=== PATIENT | female | born 1965 | race Caucasian/White ===

== ENCOUNTER 2017-07-13 11:40 | Emergency (ER) | payer BC ==
[2017-07-13 11:49] VITALS: BP 158/97
[2017-07-13] MEDS ORDERED: KETOROLAC TROMETHAMINE 60 MG/2 ML VIAL IM ONE ×2 (12:06→12:08)
[2017-07-13 12:20] LABS: Hematocrit 43.6 % (37.0-47.0); Hemoglobin 14.5 gm/dL (12.5-16.0); Mean Cell Volume 94.4 fl (78-100); Mean Corpuscular Hemoglobin 31.4 pg (27-31); Mean Corpuscular Hgb Conc 33.3 g/dl (32-36); Mean Platelet Volume 10.4 fl (6.0-9.5); Neutrophil # 5.5 K/mm3 (1.3-6.0); Neutrophil % 70.9 % (42-75.0); Platelet Count 317 K/mm3 (150-450); Red Blood Count 4.62 M/mm3 (4.2-5.4); Red Cell Distribution Width 13.1 % (11.5-14.0); White Blood Count 7.7 K/mm3 (4.0-10.5)
--- NOTE | 2017-07-13 12:21 | ERNOTE ---
Lower Extremity HPI - Narrative Date of Service: 07/13/17 - General Lower Extremities Pain: hip: left Time Seen by Provider: 07/13/17 11:51 Source: patient Exam Limitations: no limitations - Immun/Allergies/Home Medications Immunizations: IMMUNIZATION HX Immunizations Up to Date Yes History of Influenza Vaccine Yes Allergies/Adverse Reactions: Allergies Allergy/AdvReac Type Severity Reaction Status Date / Time Sulfa (Sulfonamide Allergy Verified 07/13/17 11:49 Antibiotics) prednisone AdvReac Mild "heart Verified 07/13/17 11:49 burn and makes me want to crawl out of my skin" Home Medications: HOME MEDICATIONS Fluticasone Propionate [Flonase] 1 spray NS BID 06/15/16 [Last Taken Unknown] Omeprazole [Prilosec] 20 mg PO DAILY 06/15/16 [Last Taken Unknown] Cyclobenzaprine HCl [Flexeril] 10 mg PO TID PRN #30 tab 07/13/17 [Last Taken Unknown] predniSONE [Prednisone] 3 tab PO DAILY #9 tab 07/13/17 [Last Taken Unknown] - History of Present Illness Narrative: Pt. comes in with c/o L hip pain after she got a joint injection in this hip three days ago. Pt. has had injections in B hip for over a year every three months. Pt. denies any SOB, CP, NVD, fever, recent illness, numbness, tingling or recent injury. Review of Systems - Review of Systems Constitutional: Present: no symptoms reported. Absent: recent illness, fever, chills, weakness, fatigue, malaise EYE: Present: no symptoms reported ENT: Present: no symptoms reported Respiratory: Present: no symptoms reported. Absent: shortness of breath, cough , wheezing Cardiology: Present: no symptoms reported. Absent: chest pain, palpitations, edema Gastrointestinal/Abdominal: Present: no symptoms reported Genitourinary: Present: no symptoms reported Musculoskeletal: Present: muscle pain - R lateral hip. Absent: back pain, joint pain Skin: Present: no symptoms reported. Absent: rash, lesions, lumps, change in color Neurological: Present: no symptoms reported. Absent: headache, dizziness/light- headedness, numbness, tingling All Other Systems: All systems neg except as marked - Patient's Past Medical History Patient History - Medical: GERD Patient History - Cardiac/Respiratory: Bronchitis, COPD Patient History - Cancer: No Hx of Cancer Patient History - Surgical Procedures: Hysterectomy, Other Patient History - Other: None - Social History Living Situations: home Psych History: No pertinent hx Smoking Status: Never smoker Have you smoked in the past 12 months: No Do you dip or chew tobacco: No Alcohol Use: occasionally Drug Use: none - Immunizations Immunizations Up to Date: Yes History of Influenza Vaccine: Yes Physical Exam - Physical Exam General Appearance: Present: wd/wn, alert, no apparent distress Head Exam: Present: normal inspection, no evidence of injury Eye Exam: Normal inspection: bilateral Neck: Present: normal inspection. Absent: lymphadenopathy (R), lymphadenopathy (L) Respiratory: Present: no respiratory distress, normal breath sounds, no accessory muscle use, chest nontender, lungs clear Cardiovascular/Chest: Present: regular rate, rhythm, no murmur, normal peripheral pulses Back Exam: Present: normal inspection Extremity Exam: Present: normal range of motion, other - pain with ROM but no decrease in range passive or active. Absent: bony tenderness, joint redness, joint swelling Neurological Exam: Present: alert, oriented, normal mood/affect, no motor/ sensory deficits Skin Exam: Present: normal color, warm/dry. Absent: pallor, skin rash ED Progress - Date and Time Seen: Date and Time: 07/13/17 12:55 Labs don't indicate infection and there is no local inflammation so I feel that pt. symptoms are probably related to chronic injection in her hips and need to be evaluated by orthopedics for further treatment as there were notable calcifications in pt. soft tissues a year ago in hip xray so will have her follow up with ortho when they can see her on nonemergent basis and will start on Prednisone burst. - Results and Orders Patient's Lab Results:: I have reviewed the patient's lab results. - Vital Signs Patient's Vital Signs:: I have reviewed the patient's vital signs. Vital Signs: Vital Signs 07/13/17 11:44 Temperature 37.2 C Pulse Rate 90 Respiratory 16 Rate Blood Pressure 158/97 O2 Sat by Pulse 100 Oximetry - Progress/Reassessment Chief Complaint: Lower Extremity Pain/ Injury Progress:: Improved Departure Clinical Impression: Tendinopathy of hip - Departure Disposition: Home self-care Condition: Good Instructions: Hip Pain Additional Instructions: Please apply heat 20 minutes of every hour for pain and rest until pain is improving. Please follow up with ortho as scheduled. Referrals: Samuel Parks DO [Primary Care Provider] - Shawn Henry PAC [[facility]] - Prescriptions: Cyclobenzaprine HCl [Flexeril] 10 mg PO TID PRN #30 tab PRN Reason: MUSCLE SPASMS predniSONE [Prednisone] 3 tab PO DAILY #9 tab
[2017-07-13 12:34] LABS: ALT 31 U/L (19-67); AST 12 U/L (0-48); Alkaline Phosphatase * 75 U/L (50-170); Anion Gap 13.2 mmol/L (6.8-13.8); BUN/Creatinine Ratio 14.6 (9.0-21.6); Bilirubin, Total 0.4 mg/dL (0.0-1.1); Blood Urea Nitrogen 13 mg/dL (3-23); Ca. Corrected For Albumin 8.9 mg/dL (8.4-10.2); Calcium * 9.2 mg/dL (7.9-10.9); Carbon Dioxide 27.9 mmol/L (24-32.6); Chloride 101 mmol/L (97-106); Glucose * 87 mg/dL (70-110); Potassium 4.1 mmol/L (3.4-4.6); Sodium 138 mmol/L (132-142)
== END 2017-07-13 13:16 | disposition home or self-care (01) ==
LOC: ER 11:40
DX: M76.01 Gluteal tendinitis, right hip (principal); K21.9 Gastro-esophageal reflux disease without esophagitis; J44.9 Chronic obstructive pulmonary disease, unspecified; M76.9 Unspecified enthesopathy, lower limb, excluding foot